=== PATIENT | female | born 1960 ===

== ENCOUNTER 2018-03-30 10:33 | Emergency (ER) | payer BC, OTHER, SELFPAY ==
[2018-03-30 10:49] VITALS: BP 98/61; TEMP 98.1; O2SAT 99
[2018-03-30 10:50] VITALS: BMI 24.4
[2018-03-30 10:52] VITALS: PULSE 92; RESP 16
[2018-03-30] MEDS ORDERED: Sodium Chloride 0.9% 1,000 ML IV SCH (11:45)
[2018-03-30 12:06] LABS: BASO % 0.2 % (0.0-2.0); EOS % 0.6 % (0.0-4.0); HEMOGLOBIN 11.1 g/dL (12.0-16.0); LYMPH # 1.7 K/uL (1.0-4.3); LYMPH % 22.4 % (20.0-40.0); MEAN CELL VOLUME 78.6 fl (81.0-99.0); MEAN CORPUSCULAR HEMOGLOBIN 25.6 pg (27.0-31.0); MEAN CORPUSCULAR HGB CONC 32.6 g/dL (33.0-37.0); MEAN PLATELET VOLUME 7.2 fl (7.2-11.7); MONO # 0.4 K/uL (0.0-0.8); MONO % 5.8 % (0.0-10.0); NEUT # 5.5 K/uL (1.8-7.0); NRBC % 0.1 % (0.0-0.0); RBC 4.35 Mil/uL (3.80-5.20); RED CELL DISTRIBUTION WIDTH 16.4 % (11.5-14.5); WHITE BLOOD COUNT 7.7 K/uL (4.8-10.8)
--- NOTE | 2018-03-30 12:12 | ED PDOC ---
HPI: Abdomen Time Seen by Provider: 03/30/18 11:16 Chief Complaint (Nursing): GI Problem Chief Complaint (Provider): Constipation History Per: Patient History/Exam Limitations: no limitations Onset/Duration Of Symptoms: Persistent (x6-8 weeks) Current Symptoms Are (Timing): Still Present Additional Complaint(s): 57 year old female presents to ED with complaints of intermittent constipation associated with occasional nonbloody, diarrhea and constant bloating ongoing for 6-8 weeks. Patient states last BM was required straining with small amount of feces produced. Otherwise: (-) fever, (-) chills, (-) nausea, (-) vomiting, ( -) urinary complaints, (-) abdominal pain, (-) cough, (-) shortness of breath, ( -) headache, (-) dizziness, or (-) taking medication for relief. PMD: Dr. Josh Hong Past Medical History Reviewed: Historical Data, Nursing Documentation, Vital Signs Vital Signs: Last Vital Signs Temp 98.1 F 03/30/18 10:50 Pulse 92 H 03/30/18 10:50 Resp 16 03/30/18 10:50 BP 98/61 L 03/30/18 10:50 Pulse Ox 99 03/30/18 13:54 - Medical History PMH: No Chronic Diseases Denies: Asthma, HTN - Surgical History Surgical History: Denies: No Surg Hx Other surgeries: neck cyst removed - Family History Family History: States: Unknown Family Hx - Social History Current smoker - smoking cessation education provided: No Ex-Smoker (has not smoked in the last 12 months): No Alcohol: None Drugs: Denies - Home Medications Home Medications: Ambulatory Orders Medication Instructions Recorded Polyethylene Glycol 3350 [Miralax] 17 gm PO DAILY #170 gm 03/30/18 - Allergies Allergies/Adverse Reactions: Allergies Allergy/AdvReac Type Severity Reaction Status Date / Time No Known Allergies Allergy Verified 03/30/18 10:50 Review of Systems ROS Statement: Except As Marked, All Systems Reviewed And Found Negative Constitutional: Negative for: Fever, Chills Respiratory: Negative for: Cough, Shortness of Breath Gastrointestinal: Positive for: Diarrhea, Constipation, Other (bloating). Negative for: Nausea, Vomiting, Abdominal Pain Genitourinary Female: Negative for: Dysuria, Incontinence, Hematuria Neurological: Negative for: Headache, Dizziness Physical Exam - Reviewed Nursing Documentation Reviewed: Yes Vital Signs Reviewed: Yes - Physical Exam Comments: GENERAL APPEARANCE: Patient is awake, alert, oriented x 3, in no acute distress , resting comfortably. SKIN: Warm, dry; (-) cyanosis. EYES: (-) conjunctival pallor, (-) scleral icterus. ENMT: Mucous membranes moist NECK: (-) tenderness, (-) stiffness, (-) lymphadenopathy. CHEST AND RESPIRATORY: (-) rales, (-) rhonchi, (-) wheezes; breath sounds equal bilaterally. HEART AND CARDIOVASCULAR: (-) irregularity; (-) murmur, (-) gallop. ABDOMEN AND GI: (-) distention. Bowel sounds active; (-) tenderness, (-) guarding, (-) rebound, (-) palpable masses, (-) CVA tenderness. EXTREMITIES: (-) deformity, (-) edema, (+) distal pulses. NEURO AND PSYCH: Mental status as above; (-) focal findings. - Laboratory Results Result Diagrams: 03/30/18 11:50 03/30/18 11:50 Urine dip results: Positive for: Ketones (trace). Negative for: Leukocyte Esterase, Blood, Nitrate, Glucose, Bilirubin, Protein - ECG O2 Sat by Pulse Oximetry: 99 (RA) Pulse Ox Interpretation: Normal Medical Decision Making Medical Decision Making: Initial Impression: Constipation Initial Plan: * EKG * Labs * XR obstructive series * Colace 200mg PO * NS 1,000ml IV per 1,000mls/hr Time: 1210 --Udip Reviewed. No evidence of UTI. Time: 1250 --Labs: grossly negative for abnormality except for hyperkalemia. 20ml equivalence of potassium and EKG ordered. Time: 1315 --EKG: NSR at 76 BMP. QTC: 443. No ST changes or ectopy. Time: 1325 Obstructive Series XR reviewed, radiology report follows: CHEST: Lungs: Clear. Cardiovascular: Normal size heart. No pulmonary vascular congestion. Pleura: No pleural fluid. No pneumothorax. Other findings: None. ABDOMEN AND PELVIS: Bowel: Unremarkable bowel gas pattern. No evidence of mechanical obstruction. Moderately prominent retained fecal material throughout the colon. Free air: None. Bones: Unremarkable. Other findings: Large lesion in the right upper quadrant with eggshell calcifications in the periphery may represent a large calculus in the gallbladder or porcelain gallbladder. The former is favored. Further, calcification the pelvis may reflect uterine fibroid calcifications. IMPRESSION: Unremarkable radiographs of chest. Nonobstructive bowel gas pattern in the abdomen with moderately prominent retained fecal material identified throughout various large-bowel loops. Large calculus suggests at the right upper quadrant abdomen versus possible porcelain gallbladder. Potential uterine fibroid calcifications at the midline inferior pelvis soft tissues. . Time: 1328 --Miralax 17mg PO and 1 adult glycerin suppository ordered. Time: 1400 On re-evaluation, patient offers no additional complaints. On exam, patient remains AAOx3, in no acute distress. Lungs clear to auscultation, cardiac RRR, abdomen soft, non-tender, repeat neuro exam shows no focal findings. VSS, stable for discharge. High fiber diet encouraged. Lab/Diagnostic results d/w the patient in great detail. Diagnosis of constipation, hypokalemia d/w the patient. Based on history, exam and diagnostic results, plan will be for outpatient follow up. Patient instructed to follow-up with pmd / referral provided / the clinic in 1- 2 days without fail. Advised to take medication as prescribed. Return to the emergency room at any time for any new or worsening symptoms. Patient states she fully agrees with and understands discharge instructions. States that she agrees with the plan and disposition. Verbalized and repeated discharge instructions and plan. I have given the patient opportunity to ask any additional questions. Scribe Attestation: Documented by Lisa Blancas, acting as a scribe for Lucero Frederick PA-C. Provider Scribe Attestation: All medical record entries made by the Scribe were at my direction and personally dictated by me. I have reviewed the chart and agree that the record accurately reflects my personal performance of the history, physical exam, medical decision making, and the department course for this patient. I have also personally directed, reviewed, and agree with the discharge instructions and disposition. Disposition - Clinical Impression Clinical Impression: Constipation, Hypokalemia - Patient ED Disposition Is Patient to be Admitted: No Counseled Patient/Family Regarding: Studies Performed, Diagnosis, Need For Followup, Rx Given - Disposition Referrals: Josh Hong MD [Family Provider] - Disposition: Routine/Home Disposition Time: 14:01 Condition: STABLE Additional Instructions: The emergency medical care you received today was directed at your acute symptoms. If you were prescribed any medication, please fill it and take as directed. It may take several days for your symptoms to resolve. Return to the Emergency Department if your symptoms worsen, do not improve, or if you have any other problems. Please contact your doctor in 2 days for re-evaluation and follow up / or call one of the physicians/clinics you have been referred to that are listed on the Patient Visit Information form that is included in your discharge packet. Bring any paperwork you were given at discharge with you along with any medications you are taking to your follow up visit. Our treatment cannot replace ongoing medical care by a primary care provider (PCP) outside of the emergency department. Prescriptions: Polyethylene Glycol 3350 [Miralax] 17 gm PO DAILY #170 gm Instructions: Constipation in Adults, High Fiber Diet, Hypokalemia, High Potassium Diet Forms: [employer] (Occitan) Print Language: GREENLANDIC - POA Present On Arrival: None Results - Lab Results Lab Results: 03/30/18 03/30/18 11:50 11:50 WBC 7.7 RBC 4.35 Hgb 11.1 L Hct 34.2 MCV 78.6 L MCH 25.6 L MCHC 32.6 L RDW 16.4 H Plt Count 454 H MPV 7.2 Neut % (Auto) 71.0 Lymph % (Auto) 22.4 [place] % (Auto) 5.8 Eos % (Auto) 0.6 Baso % (Auto) 0.2 Neut # (Auto) 5.5 Lymph # (Auto) 1.7 [place] # (Auto) 0.4 Eos # (Auto) 0.0 Baso # (Auto) 0.0 Sodium 136 Potassium 3.2 L Chloride 98 Carbon Dioxide 26 Anion Gap 15 BUN 10 Creatinine 0.7 Est GFR ( Amer) > 60 Est GFR (Non-Af Amer) > 60 Random Glucose 94 Calcium 8.5 Total Bilirubin 0.4 AST 30 ALT 33 Alkaline Phosphatase 111 Total Protein 7.1 Albumin 3.7 Globulin 3.4 Albumin/Globulin Ratio 1.1 Lipase 50
[2018-03-30 12:24] LABS: ALB/GLOB RATIO 1.1 (1.0-2.1); ALBUMIN 3.7 g/dL (3.5-5.0); ALT/SGPT 33 U/L (9-52); AST/SGOT 30 U/L (14-36); BLOOD UREA NITROGEN 10 mg/dl (7-17); CALCIUM 8.5 mg/dL (8.4-10.2); GFR AFRICAN-AMERICAN > 60; GFR NON-AFRICAN AMERICAN > 60; LIPASE 50 U/L (23-300)
[2018-03-30] MEDS ORDERED: Potassium Chloride 20 mEq ER Tab PO ONE ×2 (12:47→13:03)
--- NOTE | 2018-03-30 13:23 | RAD ---
Date of service: 03/30/2018 PROCEDURE: Radiographs of the chest and abdomen (obstructive series) HISTORY: constipation COMPARISON: No prior. TECHNIQUE: AP radiograph of the chest, with upright and supine radiographs of the abdomen. FINDINGS: CHEST: Lungs: Clear. Cardiovascular: Normal size heart. No pulmonary vascular congestion. Pleura: No pleural fluid. No pneumothorax. Other findings: None. ABDOMEN AND PELVIS: Bowel: Unremarkable bowel gas pattern. No evidence of mechanical obstruction. Moderately prominent retained fecal material throughout the colon. Free air: None. Bones: Unremarkable. Other findings: Large lesion in the right upper quadrant with eggshell calcifications in the periphery may represent a large calculus in the gallbladder or porcelain gallbladder. The former is favored. Further, calcification the pelvis may reflect uterine fibroid calcifications. IMPRESSION: Unremarkable radiographs of chest. Nonobstructive bowel gas pattern in the abdomen with moderately prominent retained fecal material identified throughout various large-bowel loops. Large calculus suggests at the right upper quadrant abdomen versus possible porcelain gallbladder. Potential uterine fibroid calcifications at the midline inferior pelvis soft tissues. .
[2018-03-30] MEDS ORDERED: POLYETHYLENE GLYCOL 3350 17 GM/Dose PACKET PO STA (13:28)
--- NOTE | 2018-03-30 22:31 | CARD ---
APPROVED REPORT Date of service: 03/30/2018 <Conclusion> Normal sinus rhythm Normal ECG
== END 2018-03-30 14:38 | disposition home or self-care (01) ==
LOC: H.ER 10:33
DX: K59.00 Constipation, unspecified (principal); E87.6 Hypokalemia; R19.7 Diarrhea, unspecified
CPT/HCPCS: 74022; 80053; 83690; 85025; 93005; 96360; 99283; J7030